=== PATIENT | female | born 1995 | race Caucasian/White ===

== ENCOUNTER 2019-08-19 16:15 | Emergency (ER) | payer SELFPAY ==
[~2019-08-19] VITALS: Ht 154.9 cm; Wt 60.3 kg
--- NOTE | 2019-08-19 16:16 | NUR ---
MD SPEAKING WITH PT
[2019-08-19 16:17] VITALS: BP 144/91
[2019-08-19] MEDS ORDERED: KETOROLAC 60 MG/2 ML VIAL IM ONE (16:25)
--- NOTE | 2019-08-19 16:57 | NUR ---
PT TO BED 3
--- NOTE | 2019-08-19 17:11 | NUR ---
[facility] IM ADMINISTERED
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
--- NOTE | 2019-08-19 17:31 | NUR ---
PT CHANGED INTO GOWN, PATIENT STATES SHE WILL SIGN FOR XRAYS, DOES NOT WANT TEST TAKEN
[2019-08-19 18:32] VITALS: BP 123/73
--- NOTE | 2019-08-19 18:32 | NUR ---
VSS AT THIS TIME. PT AA0X4. FAMILY BEDSIDE
--- NOTE | 2019-08-19 19:11 | NUR ---
Patient discharged with v/s stable. Written and verbal after care instructions given and explained. Patient alert, oriented and verbalized understanding of instructions. C-collar removed by physician Ambulatory with steady gait. All questions addressed prior to discharge. ID band removed. Patient advised to follow up with PMD. Rx of motrin given. Patient educated on indication of medication including possible reaction and side effects. Opportunity to ask questions provided and answered.
== END 2019-08-19 19:11 | disposition home or self-care (01) ==
LOC: MED 16:15
DX: S46.812A Strain of other muscles, fascia and tendons at shoulder and upper arm level, left arm, initial encounter (principal); S16.1XXA Strain of muscle, fascia and tendon at neck level, initial encounter; V49.49XA Driver injured in collision with other motor vehicles in traffic accident, initial encounter; W22.19XA Striking against or struck by other automobile airbag, initial encounter; Y93.89 Activity, other specified; Y92.488 Other paved roadways as the place of occurrence of the external cause; Y99.8 Other external cause status
CPT/HCPCS: 72040; 73030; 96372; 99283; J1885

== ENCOUNTER 2024-07-19 21:58 | Emergency (ER) | payer OTHER ==
[~2024-07-19] VITALS: Ht 154.9 cm; Wt 65.3 kg
[2024-07-19 22:28] VITALS: BP 115/79; PULSE 80; RESP 18; TEMP 98; O2SAT 97
[2024-07-20] MEDS ORDERED: NAPR-337 PO (01:18)
== END 2024-07-20 01:20 | disposition home or self-care (01) ==
LOC: MED 21:58
DX: S43.402A Unspecified sprain of left shoulder joint, initial encounter (principal); S16.1XXA Strain of muscle, fascia and tendon at neck level, initial encounter; S39.012A Strain of muscle, fascia and tendon of lower back, initial encounter; V49.49XA Driver injured in collision with other motor vehicles in traffic accident, initial encounter; Y93.89 Activity, other specified; Y92.89 Other specified places as the place of occurrence of the external cause; Y99.8 Other external cause status
CPT/HCPCS: 72050; 72100; 73020; 99284